=== PATIENT | female | born 1945 | race Caucasian/White ===

== ENCOUNTER → 2017-03-27 | Outpatient (CLI) | payer MEDICARE, OTHER ==
[~2017-03-27] MED LIST: LIPITOR TAB 2020 MG PO
[2017-03-27 12:31] LABS: HEMOGLOBIN 14.6 gm/dl (12.3-15.3); RED BLOOD COUNT 4.9 M/UL (4.00-5.10); WHITE BLOOD COUNT 5.6 K/UL (4.5-11.0)
[2017-03-27 12:50] LABS: BUN/CREATININE RATIO 20 (0-10)
== END ==
LOC: LAB 12:03
PROVIDERS: Physician Assistant
DX: K21.9 Gastro-esophageal reflux disease without esophagitis (principal); E78.5 Hyperlipidemia, unspecified
CPT/HCPCS: 36415; 80048; 80061; 80076; 82150; 83690; 85025

== ENCOUNTER → 2017-03-31 | Outpatient (CLI) | payer MEDICARE, OTHER | LOC: US 09:36 | DX: R10.11 Right upper quadrant pain (principal); R11.0 Nausea; R93.421 Abnormal radiologic findings on diagnostic imaging of right kidney | CPT/HCPCS: 76705 ==

== ENCOUNTER → 2017-04-07 | Outpatient (CLI) | payer MEDICARE, OTHER ==
[2017-04-07 09:34] LABS: HEMOGLOBIN 13.5 gm/dl (12.3-15.3); RED BLOOD COUNT 4.57 M/UL (4.00-5.10); WHITE BLOOD COUNT 4.8 K/UL (4.5-11.0)
[2017-04-07 09:45] LABS: BUN/CREATININE RATIO 30 (0-10)
== END ==
LOC: LAB 08:42
PROVIDERS: Family Medicine
DX: E53.8 Deficiency of other specified B group vitamins (principal); E55.9 Vitamin D deficiency, unspecified; E78.5 Hyperlipidemia, unspecified; I10 Essential (primary) hypertension; R73.09 Other abnormal glucose
CPT/HCPCS: 36415; 80048; 80061; 80076; 82607; 83036; 84443; 85025

== ENCOUNTER → 2017-04-11 | Outpatient (CLI) | payer MEDICARE, OTHER | LOC: KOH-I 09:16 | DX: N28.89 Other specified disorders of kidney and ureter (principal); K76.89 Other specified diseases of liver | CPT/HCPCS: 74170; Q9962 ==

== ENCOUNTER → 2017-05-20 | Outpatient (CLI) | payer MEDICARE, OTHER | LOC: NM 08:55 | DX: R10.84 Generalized abdominal pain (principal) | CPT/HCPCS: 78227; A9537; J2805 ==

== ENCOUNTER → 2021-01-01 | Outpatient (CLI) | payer MEDICARE, OTHER ==
[~2021-01-01] MED LIST changes: +ASPIR-LOW81 MG PO; +AVAPRO150 MG PO; +BRILINTA 90 MG90 MG PO; +CARAFATE1 GM PO; +CRESTOR20 MG PO; +FLUZONE QU60 MCG/018 IM; +FUROSEMIDE40 MG PO; +HYDROCHLOROTHIA25 MG PO; +ISOSORBIDE DINI30 MG PO; +K-DUR TAB 10 M10 MEQ PO; +KLONOPIN1 MG PO; +LEXAPRO20 MG PO; +LISINOPRIL10 MG PO; +LOPRESSOR 50 MG50 MG PO; +PRALUENT SC; +PROTONIX 40 MG40 M1 PO; +ZOFRAN4 MG PO; +[UNRECOGNIZED DRUG - OTHER] IM
== END ==
LOC: CT 13:47
DX: R10.84 Generalized abdominal pain (principal)
CPT/HCPCS: 36415; 82565; 84520

== ENCOUNTER → 2021-02-05 | Outpatient (CLI) | payer MEDICARE, OTHER | LOC: CT 09:00 | DX: R10.84 Generalized abdominal pain (principal); K76.0 Fatty (change of) liver, not elsewhere classified; K57.90 Diverticulosis of intestine, part unspecified, without perforation or abscess without bleeding | CPT/HCPCS: 36415; 82565; 84520; Q9967 ==

== ENCOUNTER 2022-05-01 16:44 | Emergency (ER) | payer MEDICARE, OTHER ==
[~2022-05-01 16:44] MED LIST changes: +OMNICEF 300 MG300 MG PO
[2022-05-01 19:22] LABS: HEMOGLOBIN 13.1 gm/dl (12.3-15.3); RED BLOOD COUNT 4.39 M/UL (4.00-5.10)
[2022-05-01 19:52] LABS: BUN/CREATININE RATIO 18 (0-10)
[2022-05-01] MEDS ORDERED: CEPHALEXIN500 M1 PO (20:17)
== END 2022-05-01 20:30 | disposition home or self-care (01) ==
LOC: ER1 16:44
PROVIDERS: Physician Assistant
DX: N39.0 Urinary tract infection, site not specified (principal); N20.1 Calculus of ureter; K57.30 Diverticulosis of large intestine without perforation or abscess without bleeding; I51.9 Heart disease, unspecified; I25.10 Atherosclerotic heart disease of native coronary artery without angina pectoris; I10 Essential (primary) hypertension; Z95.1 Presence of aortocoronary bypass graft; Z95.5 Presence of coronary angioplasty implant and graft
CPT/HCPCS: 80053; 81001; 85025; 87086; 99284; J1940

== ENCOUNTER → 2022-07-26 | Outpatient (CLI) | payer MEDICARE, OTHER ==
[~2022-07-26] MED LIST changes: +CEPHALEXIN500 M1 PO
== END ==
LOC: CT 14:33
DX: R10.30 Lower abdominal pain, unspecified (principal)
CPT/HCPCS: 36415; 82565; 84520; Q9967

== ENCOUNTER → 2022-08-08 | Outpatient (CLI) | payer MEDICARE, OTHER | LOC: HEART 5 07-30 11:30 | DX: R07.89 Other chest pain (principal); I50.9 Heart failure, unspecified; I25.10 Atherosclerotic heart disease of native coronary artery without angina pectoris; I08.1 Rheumatic disorders of both mitral and tricuspid valves | CPT/HCPCS: 93306 ==